=== PATIENT | male | born 1950 | race Caucasian/White ===

== ENCOUNTER 2023-04-01 00:10 | Inpatient (IN) | payer MEDICARE ==
[~2023-04-01] VITALS: Ht 182.9 cm; Wt 94.2 kg
[~2023-04-01 00:10] MED LIST: ASPI1TAB20 PO; DIGO0.12 PO; EMPA1TAB3 PO; METO-289 PO; PRAV20TA3 PO; RIVA20TA PO; ROSU1TAB15 PO; SERT-160 PO
[2023-04-01 01:30] VITALS: PULSE 68; RESP 17; O2SAT 93
[2023-04-01 01:42] LABS: Chloride 107 mmol/L (98-107); Potassium 4.6 mmol/L (3.5-5.1); Sodium 138 mmol/L (136-145)
[2023-04-01 01:43] LABS: Anion Gap 8 (5-15); Carbon Dioxide 23 mmol/L (20-30)
[2023-04-01 01:44] LABS: Calcium 9.1 mg/dL (8.7-10.4)
[2023-04-01 01:46] LABS: Basophils # (auto) 0 10 ^3/uL (0-0.2); Basophils % (auto) 0.3 % (0.0-2.0); Eosinophils # (auto) 0.1 10 ^3/uL (0-0.8); Hemoglobin 15.3 g/dL (13.5-17.5); Lymphocytes # (auto) 1.6 10 ^3/uL (0.4-5.4); Lymphocytes % (auto) 11.9 % (10.0-50.0); Monocytes # (auto) 1.2 10 ^3/uL (0-1.3)
[2023-04-01 01:48] LABS: Eosinophils % (auto) 0.6 % (0.0-7.0); Hematocrit 45.4 % (41.0-53.0); Mean Corpuscular Hemoglobin 34.4 pg (28.0-32.0); Mean Corpuscular Hgb Conc. 33.7 g/dL (32.0-36.0); Mean Corpuscular Volume 101.9 fL (80.0-100.0); Neutrophils # (auto) 10.7 10 ^3/uL (1.6-8.6); Neutrophils % (auto) 78.2 % (37.0-80.0); Nucleated Red Blood Cells % 0.8 %; Red Blood Cells 4.46 10^6/uL (4.5-5.90); Red Cell Distribution Width 13.6 % (11.8-14.3); White Blood Cell 13.7 10^3/uL (4.4-10.8)
[2023-04-01 01:49] LABS: Blood Urea Nitrogen 17 mg/dL (9-23); Glucose 187 mg/dL (74-106)
[2023-04-01 01:59] LABS: Blood Alcohol < 3.0 mg/dL (<10)
[2023-04-01 02:43] LABS: INR 1.13 (0.9-1.15); Prothrombin Time 11.8 sec (9.3-11.8)
[2023-04-01 03:05] LABS: Platelet Estimate Adequate
[2023-04-01 04:21] LABS: Urine Epithelial Cast None Seen /hpf (<5)
[2023-04-01 04:34] LABS: Urine Bacteria NONE SEEN /hpf (None Seen); Urine Blood Negative /uL (Negative); Urine Clarity Clear (Clear); Urine Color Colorless (Yellow); Urine Hyaline Cast FEW /lpf (0 - 2); Urine Protein, UAD Negative (Negative); Urine Specific Gravity 1.016 (1.001-1.035); Urine Urobilinogen Normal (Negative); Urine WBC <1 /hpf (0 - 3); Urine pH 5.5 (5.0-8.0)
[2023-04-01 04:42] LABS: Amphetamine Screen, Urine Neg (NEGATIVE); Barbiturate Scree,Urine Neg (NEGATIVE); Benzodiazephine Screen, Urine Neg (NEGATIVE); Cannabinoid Screen, Urine Neg (NEGATIVE); Cocaine Screen, Urine Neg (NEGATIVE); Opiate Scree,Urine Neg (NEGATIVE); Phencyclidine Screen, Urine Neg (NEGATIVE)
[2023-04-01] MEDS ORDERED: NITROGLYCERIN 0.4 MG SL TAB SL PRN (05:30)
[2023-04-01] MEDS ORDERED: DEXTROSE (50%) 50ML SYRG IV PRN (05:30)
[2023-04-01] MEDS ORDERED: ONDANSETRON HCL 4 MG/2 ML VIAL IV PRN (05:30)
[2023-04-01] MEDS ORDERED: MORPHINE SULFATE INJ 2 MG/ml SYRG IV PRN (05:30)
[2023-04-01] MEDS: ACCU-CHEK COMFORT CURVE STRIP VI SCH (07:06)
[2023-04-01] MEDS: InsuLIN REG 1unit/0.01ml Soln (100units/ml) SC SCH (07:08)
[2023-04-01 09:21] VITALS: PULSE 70; RESP 16; O2SAT 96
[2023-04-01] MEDS: DIGOXIN 0.125 MG TAB PO SCH (10:55)
[2023-04-01] MEDS: SACUBITRIL-VALSARTAN 24mg/26mg TAB PO SCH (10:55)
[2023-04-01] MEDS: METOPROLOL SUCCINATE XL 50 MG TAB PO SCH (11:00)
[2023-04-01 13:58] LABS: Alanine Aminotransferase 20 U/L (7-40); Albumin 4.2 g/dL (3.2-4.8); Alkaline Phosphatase 66 U/L (46-116); Anion Gap 5 (5-15); Aspartate Aminotransferase 43 U/L (13-40); BUN/Creatinine Ratio 20.8 (10.0-20.0); Bilirubin, Total 0.9 mg/dL (0.2-1.0); Blood Urea Nitrogen 20 mg/dL (9-23); CRP High Sensitivity 0.41 mg/dL (<1.0); Calcium 9.4 mg/dL (8.5-10.1); Carbon Dioxide 28 mmol/L (20-30); Chloride 107 mmol/L (98-107); Glucose 170 mg/dL (74-106); Potassium 5.2 mmol/L (3.5-5.1); Sodium 140 mmol/L (136-145); Total Protein 5.8 g/dL (5.7-8.2)
[2023-04-01 14:42] LABS: Triglycerides 167 mg/dL (< 150)
[2023-04-01 14:43] LABS: LDL Cholesterol 65 mg/dL (< 100)
[2023-04-01 14:44] LABS: Cholesterol 123 mg/dL (< 200); HDL Cholesterol 37 mg/dL (40-59)
[2023-04-01 15:10] LABS: Folate (Folic Acid) 13.73 ng/mL (>5.38)
[2023-04-01] MEDS: SODIUM CHLORIDE 0.9% 1,000 ML IV ONE (16:06)
[2023-04-01 16:14] LABS: Magnesium 1.5 mg/dL (1.6-2.6)
[2023-04-01] MEDS: SODIUM ZIRCONIUM CYCL 10 GM PAK PO ONE (16:50)
[2023-04-01] MEDS: MAGNESIUM SULFATE 1GM/100ML 100 ML IV SCH (17:24)
[2023-04-01] MEDS ORDERED: RIVAROXABAN 20 MG TAB PO SCH (18:00)
[2023-04-01] MEDS: RIVAROXABAN 20 MG TAB PO SCH (18:00)
[2023-04-01] MEDS ORDERED: LORazepam 2MG/ML-1ML VIAL IV PRN (19:15)
[2023-04-01 19:48] VITALS: PULSE 62; RESP 13; O2SAT 95
[2023-04-01] MEDS: ATORVASTATIN 20 MG TAB PO SCH (21:10)
[2023-04-02] MEDS: ALBUMIN 5% 250 ML IV ONE (04:36)
[2023-04-02 04:56] LABS: Basophils # (auto) 0 10 ^3/uL (0-0.2); Basophils % (auto) 0.3 % (0.0-2.0); Eosinophils # (auto) 0.1 10 ^3/uL (0-0.8); Lymphocytes # (auto) 1.8 10 ^3/uL (0.4-5.4); Mean Corpuscular Volume 102.6 fL (80.0-100.0); Monocytes # (auto) 0.7 10 ^3/uL (0-1.3)
[2023-04-02 04:59] LABS: Eosinophils % (auto) 1.6 % (0.0-7.0); Hematocrit 42.7 % (41.0-53.0); Hemoglobin 14.3 g/dL (13.5-17.5); Lymphocytes % (auto) 22.4 % (10.0-50.0); Mean Corpuscular Hemoglobin 34.3 pg (28.0-32.0); Mean Corpuscular Hgb Conc. 33.4 g/dL (32.0-36.0); Monocytes % (auto) 9.1 % (0.0-12.0); Neutrophils # (auto) 5.3 10 ^3/uL (1.6-8.6); Neutrophils % (auto) 66.6 % (37.0-80.0); Nucleated Red Blood Cells % 0.1 %; Red Blood Cells 4.17 10^6/uL (4.5-5.90); Red Cell Distribution Width 13.2 % (11.8-14.3)
[2023-04-02 05:04] LABS: Chloride 106 mmol/L (98-107); Potassium 4.5 mmol/L (3.5-5.1); Sodium 139 mmol/L (136-145)
[2023-04-02 05:05] LABS: Anion Gap 5 (5-15); Carbon Dioxide 28 mmol/L (20-30)
[2023-04-02 05:06] LABS: Calcium 8.8 mg/dL (8.7-10.4)
[2023-04-02 05:10] LABS: Glucose 171 mg/dL (74-106)
[2023-04-02 05:11] LABS: BUN/Creatinine Ratio 13.6 (10.0-20.0); Blood Urea Nitrogen 14 mg/dL (9-23); Magnesium 1.9 mg/dL (1.6-2.6)
[2023-04-02 06:19] LABS: Erythrocyte Sedimentation Rate 8 mm/hr (0-20)
[2023-04-02] MEDS: INSULIN LANTUS (GLARGINE) 1 /0.01ml (100units/ml) SC SCH (07:10)
[2023-04-02 08:00] VITALS: PULSE 53; RESP 13; O2SAT 99
[2023-04-02] MEDS: SODIUM CHLORIDE 0.9% 1,000 ML IV SCH (08:43)
[2023-04-02] MEDS ORDERED: INSU100I54 SC (09:06)
[2023-04-02] MEDS: METOPROLOL SUCCINATE XL 50 MG TAB PO SCH (10:00)
[2023-04-02] MEDS: MAGNESIUM SULFATE 1GM/100ML 100 ML IV ONE (10:23)
[2023-04-02] MEDS: THIAMINE 100mg/ml INJ (200mg/2ml VIAL) IV SCH (10:23)
[2023-04-02] MEDS: CHOLECALCIFEROL (VITD3) 2,000 UNIT CAP/TAB PO SCH (10:23)
[2023-04-02] MEDS: FOLIC ACID 1 MG in D5W 5% 50 ML INJ SCH (11:16)
[2023-04-02 13:20] LABS: Base Excess 0.3 mmol/L (-2.0-2.0)
[2023-04-02] MEDS ORDERED: INSUINJ37 SC (15:31)
[2023-04-02] MEDS ORDERED: SACU1TAB PO (15:31)
[2023-04-02 22:00] VITALS: BP 121/73; PULSE 67; RESP 19; TEMP 97.7; O2SAT 96
[2023-04-03] VITALS (7 sets, daily range): BP systolic 100–114; BP diastolic 54–71; PULSE 63–71; RESP 16–20; TEMP 97.9–98.3; O2SAT 91–97
[2023-04-03 04:51] LABS: Basophils # (auto) 0 10 ^3/uL (0-0.2); Basophils % (auto) 0.3 % (0.0-2.0); Eosinophils # (auto) 0.2 10 ^3/uL (0-0.8); Eosinophils % (auto) 2.2 % (0.0-7.0); Hematocrit 41.4 % (41.0-53.0); Lymphocytes # (auto) 2.2 10 ^3/uL (0.4-5.4); Lymphocytes % (auto) 26.9 % (10.0-50.0); Mean Corpuscular Hemoglobin 34.4 pg (28.0-32.0); Mean Corpuscular Hgb Conc. 33.8 g/dL (32.0-36.0); Mean Corpuscular Volume 101.8 fL (80.0-100.0); Monocytes # (auto) 0.9 10 ^3/uL (0-1.3); Monocytes % (auto) 11.2 % (0.0-12.0); Neutrophils # (auto) 4.8 10 ^3/uL (1.6-8.6); Neutrophils % (auto) 59.4 % (37.0-80.0); Nucleated Red Blood Cells % 0.1 %; Red Blood Cells 4.07 10^6/uL (4.5-5.90); Red Cell Distribution Width 13.1 % (11.8-14.3); White Blood Cell 8.1 10^3/uL (4.4-10.8)
[2023-04-03 05:09] LABS: Alanine Aminotransferase 20 U/L (7-40); Alkaline Phosphatase 65 U/L (46-116); Anion Gap 4 (5-15); BUN/Creatinine Ratio 11.8 (10.0-20.0); Blood Urea Nitrogen 12 mg/dL (9-23); Calcium 9.1 mg/dL (8.7-10.4); Carbon Dioxide 26 mmol/L (20-30); Chloride 108 mmol/L (98-107); Glucose 175 mg/dL (74-106); Magnesium 1.7 mg/dL (1.6-2.6); Potassium 4.5 mmol/L (3.5-5.1); Sodium 138 mmol/L (136-145)
[2023-04-03 05:10] LABS: Aspartate Aminotransferase 25 U/L (13-40); Bilirubin, Total 0.7 mg/dL (0.2-1.0); Total Protein 5.7 g/dL (5.7-8.2)
[2023-04-03 06:06] LABS: RPR Non Reactive (Non Reactive)
[2023-04-03] MEDS: MAGNESIUM SULFATE 1GM/100ML 100 ML IV ONE (09:08)
[2023-04-04] VITALS (7 sets, daily range): BP systolic 97–140; BP diastolic 39–68; PULSE 63–97; RESP 18–19; TEMP 97.9–98.6; O2SAT 91–96
[2023-04-04 05:53] LABS: Basophils # (auto) 0 10 ^3/uL (0-0.2); Basophils % (auto) 0.3 % (0.0-2.0); Eosinophils # (auto) 0.1 10 ^3/uL (0-0.8); Eosinophils % (auto) 1.5 % (0.0-7.0); Hemoglobin 14.3 g/dL (13.5-17.5); Lymphocytes # (auto) 2.5 10 ^3/uL (0.4-5.4); Lymphocytes % (auto) 31.6 % (10.0-50.0); Mean Corpuscular Hemoglobin 34.4 pg (28.0-32.0); Monocytes # (auto) 0.8 10 ^3/uL (0-1.3); Monocytes % (auto) 10.1 % (0.0-12.0); Neutrophils # (auto) 4.5 10 ^3/uL (1.6-8.6); Neutrophils % (auto) 56.5 % (37.0-80.0); Nucleated Red Blood Cells % 0.1 %; Red Cell Distribution Width 13.1 % (11.8-14.3)
[2023-04-04 05:56] LABS: Hematocrit 42.5 % (41.0-53.0); Mean Corpuscular Hgb Conc. 33.7 g/dL (32.0-36.0); Red Blood Cells 4.16 10^6/uL (4.5-5.90); White Blood Cell 7.9 10^3/uL (4.4-10.8)
[2023-04-04 06:01] LABS: Calcium 9.2 mg/dL (8.7-10.4); Chloride 107 mmol/L (98-107); Potassium 4.3 mmol/L (3.5-5.1); Sodium 138 mmol/L (136-145)
[2023-04-04 06:02] LABS: Anion Gap 5 (5-15); Carbon Dioxide 26 mmol/L (20-30)
[2023-04-04 06:07] LABS: BUN/Creatinine Ratio 13.8 (10.0-20.0); Blood Urea Nitrogen 13 mg/dL (9-23); Glucose 155 mg/dL (74-106)
[2023-04-04 06:08] LABS: Magnesium 1.6 mg/dL (1.6-2.6)
[2023-04-04] MEDS: MAGNESIUM SULFATE 1GM/100ML 100 ML IV SCH (08:40)
[2023-04-05] VITALS (7 sets, daily range): BP systolic 96–112; BP diastolic 56–70; PULSE 64–80; RESP 16–20; TEMP 97.9–98.8; O2SAT 92–96
[2023-04-05 06:28] LABS: Basophils # (auto) 0 10 ^3/uL (0-0.2); Basophils % (auto) 0.3 % (0.0-2.0); Eosinophils # (auto) 0.1 10 ^3/uL (0-0.8); Eosinophils % (auto) 1.5 % (0.0-7.0); Hematocrit 44.3 % (41.0-53.0); Hemoglobin 14.8 g/dL (13.5-17.5); Lymphocytes # (auto) 2.8 10 ^3/uL (0.4-5.4); Lymphocytes % (auto) 30.7 % (10.0-50.0); Mean Corpuscular Hemoglobin 33.9 pg (28.0-32.0); Mean Corpuscular Hgb Conc. 33.5 g/dL (32.0-36.0); Mean Corpuscular Volume 101.1 fL (80.0-100.0); Monocytes # (auto) 0.9 10 ^3/uL (0-1.3); Monocytes % (auto) 9.8 % (0.0-12.0); Neutrophils # (auto) 5.2 10 ^3/uL (1.6-8.6); Neutrophils % (auto) 57.7 % (37.0-80.0); Nucleated Red Blood Cells % 0.1 %; Red Blood Cells 4.38 10^6/uL (4.5-5.90)
[2023-04-05 06:35] LABS: Anion Gap 6 (5-15); Calcium 9.4 mg/dL (8.7-10.4); Carbon Dioxide 26 mmol/L (20-30); Chloride 106 mmol/L (98-107); Potassium 4.7 mmol/L (3.5-5.1); Sodium 138 mmol/L (136-145)
[2023-04-05 06:42] LABS: BUN/Creatinine Ratio 12.7 (10.0-20.0); Blood Urea Nitrogen 13 mg/dL (9-23); Glucose 148 mg/dL (74-106)
[2023-04-05 06:48] LABS: Magnesium 1.8 mg/dL (1.6-2.6)
[2023-04-05] MEDS: MAGNESIUM OXIDE 400 MG TAB PO SCH (09:18)
[2023-04-06] VITALS (7 sets, daily range): BP systolic 84–107; BP diastolic 56–88; PULSE 61–108; RESP 12–18; TEMP 97.6–98.9; O2SAT 90–100
[2023-04-06 06:04] LABS: Basophils # (auto) 0 10 ^3/uL (0-0.2); Basophils % (auto) 0.3 % (0.0-2.0); Eosinophils # (auto) 0.2 10 ^3/uL (0-0.8); Eosinophils % (auto) 1.8 % (0.0-7.0); Hematocrit 44.3 % (41.0-53.0); Hemoglobin 14.9 g/dL (13.5-17.5); Lymphocytes # (auto) 2.9 10 ^3/uL (0.4-5.4); Lymphocytes % (auto) 32.5 % (10.0-50.0); Mean Corpuscular Hgb Conc. 33.6 g/dL (32.0-36.0); Mean Corpuscular Volume 101.2 fL (80.0-100.0); Monocytes # (auto) 0.9 10 ^3/uL (0-1.3); Neutrophils % (auto) 55.4 % (37.0-80.0); Nucleated Red Blood Cells % 0.1 %; Red Blood Cells 4.37 10^6/uL (4.5-5.90)
[2023-04-06 06:40] LABS: Alanine Aminotransferase 31 U/L (7-40); Albumin 4.3 g/dL (3.2-4.8); Alkaline Phosphatase 75 U/L (46-116); Anion Gap 7 (5-15); Aspartate Aminotransferase 32 U/L (13-40); BUN/Creatinine Ratio 13.8 (10.0-20.0); Bilirubin, Total 0.7 mg/dL (0.2-1.0); Blood Urea Nitrogen 16 mg/dL (9-23); Calcium 9.9 mg/dL (8.5-10.1); Carbon Dioxide 28 mmol/L (20-30); Chloride 104 mmol/L (98-107); Glucose 153 mg/dL (74-106); Potassium 4.8 mmol/L (3.5-5.1); Sodium 139 mmol/L (136-145); Total Protein 6.1 g/dL (5.7-8.2)
[2023-04-06] MEDS: ACETAMINOPHEN 325 MG TAB PO PRN (12:23)
[2023-04-07 05:00] VITALS: BP 97/48; PULSE 65; RESP 20; TEMP 98.2; O2SAT 92
[2023-04-07 06:34] LABS: Basophils # (auto) 0 10 ^3/uL (0-0.2); Basophils % (auto) 0.3 % (0.0-2.0); Eosinophils # (auto) 0.2 10 ^3/uL (0-0.8); Eosinophils % (auto) 1.7 % (0.0-7.0); Hematocrit 43.8 % (41.0-53.0); Hemoglobin 14.7 g/dL (13.5-17.5); Lymphocytes # (auto) 2.6 10 ^3/uL (0.4-5.4); Lymphocytes % (auto) 27.5 % (10.0-50.0); Mean Corpuscular Hemoglobin 33.9 pg (28.0-32.0); Mean Corpuscular Hgb Conc. 33.6 g/dL (32.0-36.0); Monocytes # (auto) 0.9 10 ^3/uL (0-1.3); Monocytes % (auto) 9.7 % (0.0-12.0); Neutrophils # (auto) 5.7 10 ^3/uL (1.6-8.6); Neutrophils % (auto) 60.8 % (37.0-80.0); Nucleated Red Blood Cells % 0.1 %; Red Blood Cells 4.34 10^6/uL (4.5-5.90); Red Cell Distribution Width 13.1 % (11.8-14.3); White Blood Cell 9.4 10^3/uL (4.4-10.8)
[2023-04-07 06:50] LABS: Alanine Aminotransferase 30 U/L (7-40); Albumin 4.2 g/dL (3.2-4.8); Alkaline Phosphatase 78 U/L (46-116); Anion Gap 5 (5-15); Aspartate Aminotransferase 27 U/L (13-40); BUN/Creatinine Ratio 22.3 (10.0-20.0); Blood Urea Nitrogen 23 mg/dL (9-23); Calcium 9.2 mg/dL (8.7-10.4); Carbon Dioxide 29 mmol/L (20-30); Chloride 105 mmol/L (98-107); Glucose 151 mg/dL (74-106); Magnesium 1.7 mg/dL (1.6-2.6); Potassium 4.6 mmol/L (3.5-5.1); Sodium 139 mmol/L (136-145)
[2023-04-07 06:51] LABS: Bilirubin, Total 0.7 mg/dL (0.2-1.0); Total Protein 5.6 g/dL (5.7-8.2)
[2023-04-07 08:00] VITALS: BP_SYST 153; BP_SYST 96; BP_DIAS 61; BP_DIAS 69; PULSE 65; PULSE 68; RESP 16; RESP 18; TEMP 98; TEMP 98.3; O2SAT 93; O2SAT 94
[2023-04-07] MEDS: FOLIC ACID 1 MG TAB PO SCH (11:57)
[2023-04-07] MEDS: METOPROLOL SUCCINATE XL 50 MG TAB PO SCH (12:00)
[2023-04-07] MEDS: THIAMINE HCL 100 MG TAB PO SCH (12:14)
[2023-04-07 12:45] VITALS: BP 112/74; PULSE 63; RESP 16; TEMP 97.7; O2SAT 97
[2023-04-07 16:40] VITALS: BP 133/65; PULSE 58; RESP 16; TEMP 98; O2SAT 93
[2023-04-07 20:00] VITALS: PULSE 66; RESP 20
[2023-04-07 22:00] VITALS: BP 101/71; PULSE 66; RESP 20; TEMP 98.1; O2SAT 94
[2023-04-08 05:00] VITALS: BP 93/48; PULSE 76; RESP 20; TEMP 98.4; O2SAT 93
[2023-04-08 06:15] LABS: Basophils # (auto) 0 10 ^3/uL (0-0.2); Eosinophils # (auto) 0.2 10 ^3/uL (0-0.8); Mean Corpuscular Volume 101.6 fL (80.0-100.0); Monocytes % (auto) 10.8 % (0.0-12.0)
[2023-04-08 06:19] LABS: Basophils % (auto) 0.3 % (0.0-2.0); Eosinophils % (auto) 1.7 % (0.0-7.0); Hematocrit 45.3 % (41.0-53.0); Hemoglobin 15.4 g/dL (13.5-17.5); Lymphocytes # (auto) 2.8 10 ^3/uL (0.4-5.4); Lymphocytes % (auto) 29.1 % (10.0-50.0); Mean Corpuscular Hemoglobin 34.5 pg (28.0-32.0); Neutrophils # (auto) 5.6 10 ^3/uL (1.6-8.6); Neutrophils % (auto) 58.1 % (37.0-80.0); Nucleated Red Blood Cells % 0.1 %; Red Blood Cells 4.46 10^6/uL (4.5-5.90); Red Cell Distribution Width 12.8 % (11.8-14.3); White Blood Cell 9.6 10^3/uL (4.4-10.8)
[2023-04-08 06:23] LABS: Chloride 105 mmol/L (98-107); Potassium 4.9 mmol/L (3.5-5.1); Sodium 140 mmol/L (136-145)
[2023-04-08 06:24] LABS: Anion Gap 4 (5-15); Calcium 9.6 mg/dL (8.7-10.4); Carbon Dioxide 31 mmol/L (20-30)
[2023-04-08 06:29] LABS: BUN/Creatinine Ratio 17.1 (10.0-20.0); Blood Urea Nitrogen 18 mg/dL (9-23); Glucose 141 mg/dL (74-106)
[2023-04-08 06:30] LABS: Magnesium 1.9 mg/dL (1.6-2.6)
[2023-04-08 08:00] VITALS: PULSE 70; RESP 16; O2SAT 93
[2023-04-08 09:00] VITALS: BP 92/37; PULSE 63; RESP 21; TEMP 96.9; O2SAT 93
[2023-04-08 13:00] VITALS: BP 108/51; PULSE 58; RESP 17; TEMP 97.9; O2SAT 92
[2023-04-08 16:47] VITALS: BP 106/45; PULSE 70; RESP 17; TEMP 98.1; O2SAT 94
[2023-04-08 22:00] VITALS: BP 103/53; PULSE 72; RESP 20; TEMP 98.6; O2SAT 94
[2023-04-09 05:00] VITALS: BP 94/58; PULSE 80; RESP 18; TEMP 98.6; O2SAT 90
[2023-04-09 06:37] LABS: Basophils # (auto) 0 10 ^3/uL (0-0.2); Basophils % (auto) 0.4 % (0.0-2.0); Eosinophils # (auto) 0.2 10 ^3/uL (0-0.8); Hematocrit 45.2 % (41.0-53.0); Hemoglobin 15.1 g/dL (13.5-17.5); Lymphocytes # (auto) 2.6 10 ^3/uL (0.4-5.4); Lymphocytes % (auto) 29.6 % (10.0-50.0); Mean Corpuscular Hemoglobin 33.8 pg (28.0-32.0); Mean Corpuscular Hgb Conc. 33.5 g/dL (32.0-36.0); Mean Corpuscular Volume 100.9 fL (80.0-100.0); Monocytes # (auto) 0.9 10 ^3/uL (0-1.3); Monocytes % (auto) 10.1 % (0.0-12.0); Neutrophils % (auto) 57.9 % (37.0-80.0); Nucleated Red Blood Cells % 0.2 %; Red Blood Cells 4.48 10^6/uL (4.5-5.90); Red Cell Distribution Width 12.9 % (11.8-14.3); White Blood Cell 8.7 10^3/uL (4.4-10.8)
[2023-04-09 06:44] LABS: Alanine Aminotransferase 29 U/L (7-40); Albumin 4.1 g/dL (3.2-4.8); Alkaline Phosphatase 78 U/L (46-116); Anion Gap 5 (5-15); Aspartate Aminotransferase 25 U/L (13-40); BUN/Creatinine Ratio 16.7 (10.0-20.0); Bilirubin, Total 0.6 mg/dL (0.2-1.0); Blood Urea Nitrogen 16 mg/dL (9-23); Calcium 9.2 mg/dL (8.7-10.4); Carbon Dioxide 29 mmol/L (20-30); Chloride 105 mmol/L (98-107); Glucose 156 mg/dL (74-106); Magnesium 1.8 mg/dL (1.6-2.6); Potassium 4.4 mmol/L (3.5-5.1); Sodium 139 mmol/L (136-145); Total Protein 5.9 g/dL (5.7-8.2)
[2023-04-09 08:00] VITALS: BP 103/57; PULSE 93; RESP 18; TEMP 98.2; O2SAT 92
[2023-04-09 08:30] VITALS: PULSE 73; RESP 16
[2023-04-09] MEDS: SERTRALINE HCL 50 MG TAB PO SCH (10:06)
[2023-04-09 13:00] VITALS: BP 109/54; PULSE 64; RESP 20; TEMP 98; O2SAT 93
[2023-04-09 17:00] VITALS: BP 97/61; PULSE 69; RESP 18; TEMP 98; O2SAT 94
[2023-04-09 20:00] VITALS: BP 92/57; PULSE 68; RESP 18; TEMP 97.6; O2SAT 93
[2023-04-10 05:00] VITALS: BP 108/46; PULSE 79; RESP 18; TEMP 98; O2SAT 96
[2023-04-10 06:24] LABS: Basophils # (auto) 0 10 ^3/uL (0-0.2); Basophils % (auto) 0.3 % (0.0-2.0); Eosinophils # (auto) 0.2 10 ^3/uL (0-0.8); Hemoglobin 15.9 g/dL (13.5-17.5); Mean Corpuscular Hemoglobin 33.9 pg (28.0-32.0); Monocytes # (auto) 0.8 10 ^3/uL (0-1.3); Neutrophils # (auto) 4.3 10 ^3/uL (1.6-8.6); White Blood Cell 7.7 10^3/uL (4.4-10.8)
[2023-04-10 06:27] LABS: Eosinophils % (auto) 2.2 % (0.0-7.0); Hematocrit 47.5 % (41.0-53.0); Lymphocytes # (auto) 2.4 10 ^3/uL (0.4-5.4); Lymphocytes % (auto) 30.9 % (10.0-50.0); Mean Corpuscular Hgb Conc. 33.5 g/dL (32.0-36.0); Monocytes % (auto) 10.6 % (0.0-12.0); Nucleated Red Blood Cells % 0.1 %; Red Cell Distribution Width 13.1 % (11.8-14.3)
[2023-04-10 06:35] LABS: Anion Gap 5 (5-15); Carbon Dioxide 30 mmol/L (20-30); Chloride 105 mmol/L (98-107); Potassium 4.9 mmol/L (3.5-5.1); Sodium 140 mmol/L (136-145)
[2023-04-10 06:36] LABS: Calcium 9.8 mg/dL (8.7-10.4)
[2023-04-10 06:41] LABS: BUN/Creatinine Ratio 13.9 (10.0-20.0); Blood Urea Nitrogen 15 mg/dL (9-23); Glucose 175 mg/dL (74-106); Magnesium 1.9 mg/dL (1.6-2.6)
[2023-04-10 08:00] VITALS: BP 94/54; PULSE 63; RESP 18; TEMP 98.1; O2SAT 96
[2023-04-10 09:00] VITALS: BP 96/54; PULSE 63; RESP 18; TEMP 98.1; O2SAT 96
[2023-04-10 13:29] VITALS: BP 101/69; PULSE 61; RESP 18; TEMP 97.5; O2SAT 95
[2023-04-10 20:00] VITALS: BP 100/60; PULSE 64; RESP 20; TEMP 98.3; O2SAT 95
[2023-04-11 05:00] VITALS: BP 96/60; PULSE 72; RESP 18; TEMP 98; O2SAT 100
[2023-04-11 06:38] LABS: Basophils # (auto) 0 10 ^3/uL (0-0.2); Eosinophils # (auto) 0.2 10 ^3/uL (0-0.8); Eosinophils % (auto) 2.4 % (0.0-7.0); Hemoglobin 15.5 g/dL (13.5-17.5); Neutrophils # (auto) 4.8 10 ^3/uL (1.6-8.6); Red Cell Distribution Width 12.5 % (11.8-14.3); White Blood Cell 8.7 10^3/uL (4.4-10.8)
[2023-04-11 06:40] LABS: Chloride 105 mmol/L (98-107); Potassium 4.8 mmol/L (3.5-5.1); Sodium 138 mmol/L (136-145)
[2023-04-11 06:41] LABS: Anion Gap 5 (5-15); Carbon Dioxide 28 mmol/L (20-30)
[2023-04-11 06:42] LABS: Basophils % (auto) 0.3 % (0.0-2.0); Calcium 9.4 mg/dL (8.7-10.4); Lymphocytes # (auto) 2.8 10 ^3/uL (0.4-5.4); Lymphocytes % (auto) 31.5 % (10.0-50.0); Mean Corpuscular Hemoglobin 34.2 pg (28.0-32.0); Mean Corpuscular Hgb Conc. 33.6 g/dL (32.0-36.0); Mean Corpuscular Volume 101.7 fL (80.0-100.0); Monocytes % (auto) 11.1 % (0.0-12.0); Neutrophils % (auto) 54.7 % (37.0-80.0); Red Blood Cells 4.52 10^6/uL (4.5-5.90)
[2023-04-11 06:46] LABS: Glucose 169 mg/dL (74-106)
[2023-04-11 06:47] LABS: BUN/Creatinine Ratio 12.5 (10.0-20.0); Blood Urea Nitrogen 13 mg/dL (9-23)
[2023-04-11 08:00] VITALS: BP 87/46; PULSE 83; RESP 20; TEMP 97.9; O2SAT 93
[2023-04-11 08:43] VITALS: BP 87/46; PULSE 83; RESP 20; TEMP 97.9; O2SAT 93
[2023-04-11 13:00] VITALS: BP 98/63; PULSE 60; RESP 17; TEMP 98.1; O2SAT 96
[2023-04-11 13:47] VITALS: BP 98/63; PULSE 60; RESP 17; TEMP 98.1; O2SAT 96
== END 2023-04-11 15:44 | disposition hospice, home (50) | DRG 71 ==
LOC: ER 00:10 → EDBD 00:10 → TELE 05:28 → TELE-WESTW 05:35 → TELE 05:35 → TELE-WESTW 04-02 21:18 → WEST WING 04-06 17:52
PROVIDERS: ADMIT Internal Medicine Geriatric Medicine; ATTEND Internal Medicine Geriatric Medicine
DX: G93.41 Metabolic encephalopathy (principal); I31.39 Other pericardial effusion (noninflammatory); I42.8 Other cardiomyopathies; I48.92 Unspecified atrial flutter; J84.9 Interstitial pulmonary disease, unspecified; I50.32 Chronic diastolic (congestive) heart failure; G45.4 Transient global amnesia; D75.89 Other specified diseases of blood and blood-forming organs; E11.649 Type 2 diabetes mellitus with hypoglycemia without coma; E78.5 Hyperlipidemia, unspecified; E86.0 Dehydration; F03.90 Unspecified dementia, unspecified severity, without behavioral disturbance, psychotic disturbance, mood disturbance, and anxiety; F10.10 Alcohol abuse, uncomplicated; F17.200 Nicotine dependence, unspecified, uncomplicated; I25.10 Atherosclerotic heart disease of native coronary artery without angina pectoris; I34.1 Nonrheumatic mitral (valve) prolapse; I48.0 Paroxysmal atrial fibrillation; I34.0 Nonrheumatic mitral (valve) insufficiency; F29 Unspecified psychosis not due to a substance or known physiological condition; E83.42 Hypomagnesemia; E87.5 Hyperkalemia; I44.0 Atrioventricular block, first degree; E66.9 Obesity, unspecified; I11.0 Hypertensive heart disease with heart failure; Z79.01 Long term (current) use of anticoagulants; I25.2 Old myocardial infarction; Z79.84 Long term (current) use of oral hypoglycemic drugs; Z91.148 Patient's other noncompliance with medication regimen for other reason; Z91.83 Wandering in diseases classified elsewhere; Z95.1 Presence of aortocoronary bypass graft; Z79.82 Long term (current) use of aspirin; Z79.899 Other long term (current) drug therapy; Z63.4 Disappearance and death of family member; Z51.5 Encounter for palliative care; Z79.4 Long term (current) use of insulin; Z82.0 Family history of epilepsy and other diseases of the nervous system; Z68.29 Body mass index [BMI] 29.0-29.9, adult
CPT/HCPCS: 36415; 36600; 70450; 70551; 71045; 71250; 74176; 80048; 80053; 80061; 80162; 80307; 80320; 81001; 82140; 82306; 82533; 82607; 82746; 82805; 82962; 83036; 83605; 83735; 83880; 84443; 84484; 85025; 85610; 85652; 86141; 86592; 93005; 93306; 93886; 95819; 97110; 97116; 97163; 97530; G0378; J1815; J7060